=== PATIENT | female | born 1960 | race Caucasian/White ===

== ENCOUNTER → 2016-10-26 | Outpatient (CLI) | payer BC ==
--- NOTE | 2016-10-27 17:39 | WOMENS IMAGING REPORT ---
EXAM DESCRIPTION: 3D SCREENING MAMMO BILAT COMPLETED DATE/TIME: 10/26/2016 12:17 pm REASON FOR STUDY: Z12.31 ROUTINE SCREENING MAMMO Z12.31 ENCNTR SCREEN MAMMOGRAM FOR MALIGNANT NEOPL ASM OF SHEELA COMPARISON: Multiple since 2008 TECHNIQUE: Standard craniocaudal and mediolateral oblique views of each breast recorded using digita l acquisition and breast tomosynthesis. LIMITATIONS: None. FINDINGS: Findings present which are benign by mammographic criteria. No suspicious masses, calcifi cations or architectural distortion. Read with the assistance of CAD. .[facility] - R2 Cenova Version 1.3 .[facility] Imaging - R2 Cenova Version 1.3 .[facility] - R2 Cenova Version 2.4 .[facility] [place] R2 Cenova Version 2.4 .[facility] - R2 Product Support Representative Version 9.2 Benign mammographic findings may include one or more of the following: Smooth masses, popcorn/rim/co arse calcifications, asymmetries, post-procedure changes, and lesions with long-standing stability. BREAST DENSITY: b. There are scattered areas of fibroglandular density. BIRAD: 2 BENIGN FINDING(S) RECOMMENDATION: RECOMMENDATION: ROUTINE SCREENING COMMENT: PATIENT NOTIFIED BY LETTER The [employer] recommends an annual screening mammogram for women aged 40 years or over. Each patient will receive a reminder prior to the anniversary date of her mammogram. The [employer] (ACR) has developed recommendations for screening MRI of the breast s in certain patient populations, to be used in conjunction with mammography. Breast MRI surveillanc e may be appropriate for women with more than 20% lifetime risk of developing breast cancer as deter mined by genetic testing, significant family history of the disease, or history of mantle radiation f or Hodgkins Disease. ACR Practice Guidelines 2008. DBT Technology DBT is a type of tomographic mammography. With conventional mammography, overlapping breast tissue ma y make lesions difficult to detect, even with good compression. DBT uses an x-ray tube that rotates a round the breast, taking images at different angles. These images are then combined to create thin sl ices of the breast that the radiologist can view as a 3D reconstruction. The [employer] unit can perform full-field digital mammograms (2D imaging); or DBT (3D imaging); or both, in a combination mode that quickly performs both the mammogram and the tomosynthesis scan while the breast is still compressed. PQRS 6045F: Fluoroscopic imaging is not utilized for breast tomosynthesis. TECHNICAL DOCUMENTATION: FINDING NUMBER: (1) ASSESSMENT: (1) JOB ID: [id number] [employer]- All Rights Reserved
== END ==
LOC: WI 11:28
PROVIDERS: ATTEND Internal Medicine
DX: Z12.31 Encounter for screening mammogram for malignant neoplasm of breast (principal)
CPT/HCPCS: 77063; G0202; 77067

== ENCOUNTER → 2016-12-23 | Outpatient (CLI) | payer BC ==
[~2016-12-23] MED LIST: DIAZEPAM 5 MG TABLET PO ONE
== END ==
LOC: RAD 15:35
PROVIDERS: ATTEND Surgery
DX: R22.0 Localized swelling, mass and lump, head (principal); R51 Headache
CPT/HCPCS: 82565; 70553; 70486; A9577

== ENCOUNTER 2017-06-28 14:33 | Emergency (ER) | payer BC ==
[2017-06-28] MEDS ORDERED: PREDNISONE 20 MG TABLET PO ONE (14:47)
[2017-06-28] MEDS ORDERED: FAMOTIDINE 20 MG TABLET PO ONE (14:47)
--- NOTE | 2017-06-28 14:49 | ER Document Report ---
ED General - General Stated Complaint: RASH Time Seen by Provider: 06/28/17 14:47 Mode of Arrival: Ambulatory Information source: Patient Notes: 56-year-old female presents with complaints of allergic reaction rash on chest abdomen back. Patient notes symptoms have been ongoing for a few days, notes she just had a craniotomy and was placed on Dilantin which is the newest medication. She spoke with her physician who stopped her Dilantin and increased her Keppra. Patient denies any oral involvement denies any difficulty breathing TRAVEL OUTSIDE OF THE [place] IN LAST 30 DAYS: No - HPI Onset: Other Onset/Duration: Persistent, Waxing and waning Quality of pain: No pain, Other - itching Severity: Moderate Pain Level: Denies Associated symptoms: Other - rash Exacerbated by: Denies Relieved by: Other - benadryl 2 hours prior to arrival Similar symptoms previously: No Recently seen / treated by doctor: Yes - Related Data Allergies/Adverse Reactions: No Known Allergies Allergy (Verified 06/28/17 14:50) Past Medical History - Social History Smoking Status: Never Smoker Cigarette use (# per day): No Chew tobacco use (# tins/day): No Smoking Education Provided: No Family History: Reviewed & Not Pertinent - Past Medical History Cardiac Medical History: Reports: Hx Hypertension Denies: Hx Atrial Fibrillation, Hx Congestive Heart Failure, Hx Coronary Artery Disease, Hx Heart Attack, Hx Hypercholesterolemia, Hx Peripheral Vascular Disease, Hx Heart Murmur Pulmonary Medical History: Denies: Hx Asthma, Hx Bronchitis, Hx COPD, Hx Pneumonia, Hx Tuberculosis Neurological Medical History: Denies: Hx Cerebrovascular Accident, Hx Seizures Musculoskeltal Medical History: Denies Hx Arthritis, Denies Hx Fibromyalgia, Denies Hx Muscular Dystrophy Traumatic Medical History: Denies: Hx Fractures Past Surgical History: Reports: Hx Cholecystectomy, Hx Tubal Ligation. Denies: Hx Appendectomy, Hx Bowel Surgery, Hx Section, Hx Coronary Artery Bypass Graft, Hx Gastric Bypass Surgery, Hx Herniorrhaphy, Hx Hysterectomy, Hx Mastectomy, Hx Pacemaker, Hx Tonsillectomy - Immunizations Hx Diphtheria, Pertussis, Tetanus Vaccination: Yes Review of Systems - Review of Systems Notes: REVIEW OF SYSTEMS: CONSTITUTIONAL : Denies fever, chills, or sweats. Denies recent illness. EENT: Denies eye, ear, throat, or mouth pain or symptoms. Denies nasal or sinus congestion or discharge. Denies throat, tongue, or mouth swelling or difficulty swallowing. CARDIOVASCULAR: Denies chest pain. Denies palpitations or racing or irregular heart beat. Denies ankle edema. RESPIRATORY: Denies cough, cold, or chest congestion. Denies shortness of breath, difficulty breathing, or wheezing. GASTROINTESTINAL: Denies abdominal pain or distention. Denies nausea, vomiting , or diarrhea. Denies blood in vomitus, stools, or per rectum. Denies black, tarry stools. Denies constipation. GENITOURINARY: Denies difficulty urinating, painful urination, burning, frequency, blood in urine, or discharge. FEMALE GENITOURINARY: Denies vaginal bleeding, heavy or abnormal periods, irregular periods. Denies vaginal discharge or odor. MUSCULOSKELETAL: Denies back or neck pain or stiffness. Denies joint pain or swelling. SKIN: admits to rash HEMATOLOGIC : Denies easy bruising or bleeding. LYMPHATIC: Denies swollen, enlarged glands. NEUROLOGICAL: recent surgery PSYCHIATRIC: Denies anxiety or stress. Denies depression, suicidal ideation, or homicidal ideation. ALL OTHER SYSTEMS REVIEWED AND NEGATIVE. PHYSICAL EXAMINATION: GENERAL: Well-appearing, well-nourished and in no acute distress. EYES: Pupils equal round extraocular movements intact, conjunctiva are normal. ENT: Nares patent NECK: Normal range of motion LUNGS: No respiratory distress Musculoskeletal: Normal range of motion NEUROLOGICAL: Normal speech, normal gait. PSYCH: Normal mood, normal affect. SKIN: generalized urticarial rash noted on chest abdomen and back. no secondary sign of infection Dictation was performed using [employer] voice recognition software Physical Exam - Vital signs Vitals: Temp Pulse Resp BP Pulse Ox 98.2 F 81 14 120/64 99 06/28/17 14:35 06/28/17 14:35 06/28/17 14:35 06/28/17 14:35 06/28/17 14:35 Course - Re-evaluation Re-evalutation: 06/28/17 15:19 Patient is having obvious allergic reaction, it is probably secondary to the Dilantin since this is the newest medication. I will treat her for her symptoms have been given EpiPen as well as very strict precautions After performing a Medical Screening Examination, I estimate there is LOW risk for AIRWAY COMPROMISE, ANAPHYLAXIS, CELLULITIS, EPIGLOTTIS, or NECROTIZING FASCIITIS, thus I consider the discharge disposition reasonable. Also, there is no evidence or peritonitis, sepsis, or toxicity. I have reevaluated this patient multiple times and no significant life threatening changes are noted. The patient and I have discussed the diagnosis and risks, and we agree with discharging home with close follow-up with the understanding that symptoms and presentations can change. We also discussed returning to the Emergency Department immediately if new or worsening symptoms occur. We have discussed the symptoms which are most concerning (e.g., difficulty breathing or swallowing , fever, changing or worsening pain) that necessitate immediate return. - Vital Signs Vital signs: Temp Pulse Resp BP Pulse Ox 98.2 F 75 14 120/64 99 06/28/17 14:36 06/28/17 14:36 06/28/17 14:36 06/28/17 14:36 06/28/17 14:36 Discharge - Discharge Clinical Impression: Allergic reaction caused by a drug Qualifiers: Encounter type: initial encounter Qualified Code(s): T78.40XA - Allergy, unspecified, initial encounter Condition: Stable Disposition: HOME, SELF-CARE Instructions: Acute Allergic Reaction ([facility]) Additional Instructions: Follow up with your physician tomorrow for further care or return to the ED IMMEDIATELY if symptoms worsen or new concerns occur. If you cannot afford to follow up with your primary care physician a list of low cost clinics have been provided at the end of your discharge papers as well. Prescriptions: Diphenhydramine HCl [Benadryl 50 mg Capsule] 1 cap PO Q6 PRN #20 capsule PRN Reason: Epinephrine [Epipen] 0.3 mg IM ASDIR PRN #1 auto.injct PRN Reason: Famotidine [Pepcid 20 mg Tablet] 20 mg PO DAILY #5 tablet Prednisone [Deltasone 20 mg Tablet] 3 tab PO DAILY 5 Days tablet
[2017-06-28 14:53] VITALS: BP 120/64
== END 2017-06-28 15:05 | disposition home or self-care (01) ==
LOC: ER 14:33
DX: R21 Rash and other nonspecific skin eruption (principal); T78.40XA Allergy, unspecified, initial encounter; X58.XXXA Exposure to other specified factors, initial encounter; I10 Essential (primary) hypertension; Z90.49 Acquired absence of other specified parts of digestive tract; Z98.51 Tubal ligation status
CPT/HCPCS: 99282; J7512

== ENCOUNTER → 2017-10-27 | Outpatient (CLI) | payer BC ==
--- NOTE | 2017-10-27 15:44 | WOMENS IMAGING REPORT ---
EXAM DESCRIPTION: BONE DENSITY HIP/SPINE COMPLETED DATE/TIME: 10/27/2017 1:44 pm REASON FOR STUDY: SCREENING MAMMO/OSTEOPOROSIS Z12.31 ENCNTR SCREEN MAMMOGRAM FOR MALIGNANT NEOPLAS M OF SHEELA M81.0 AGE-RELATED OSTEOPOROSIS W/O CURRENT PATHOLOGICAL FRAC COMPARISON: October 2011 TECHNIQUE: Dual-Energy X-ray Absorptiometry (DEXA) of the AP Spine and Hip. LIMITATIONS: None. FINDINGS: LUMBAR SPINE: The bone mineral density (BMD) measured from L1-L4 in the AP projection correlates with a T-score of -0.2, which is normal as defined by the World Health Organization. -2.6% decrease as compared to the previous study HIP: The bone mineral density (BMD) measured in the left hip correlates with a T-score of -1.7, which is o steopenia as defined by the World Health Organization. -7.1% decrease as compared to the previous st udy IMPRESSION: 1. LUMBAR SPINE: Normal 2. HIP: Osteopenia COMMENT: The World Health Organization defines low BMD as follows: T-score: Normal: Greater than -1.0 Osteopenia: Between -1.0 and -2.5 Osteoporosis: Less than -2.5 without fractures Established osteoporosis: Less than -2.5 with fractures In general, you may wish to consider: Diagnosis Treatment Follow-up DEXA Normal BMD Prevention 2-3 years Osteopenia Prevention/Therapy 1-2 years Osteoporosis Therapy Yearly TECHNICAL DOCUMENTATION: JOB ID: [id number] [employer]- All Rights Reserved
--- NOTE | 2017-10-27 18:08 | WOMENS IMAGING REPORT ---
EXAM DESCRIPTION: 3D SCREENING MAMMO BILAT COMPLETED DATE/TIME: 10/27/2017 1:43 pm REASON FOR STUDY: SCREENING MAMMO/OSTEOPOROSIS Z12.31 ENCNTR SCREEN MAMMOGRAM FOR MALIGNANT NEOPLAS M OF SHEELA M81.0 AGE-RELATED OSTEOPOROSIS W/O CURRENT PATHOLOGICAL FRAC COMPARISON: MULTIPLE SINCE 2008 TECHNIQUE: Standard craniocaudal and mediolateral oblique views of each breast recorded using digita l acquisition and breast tomosynthesis. LIMITATIONS: None. FINDINGS: Findings present which are benign by mammographic criteria. No suspicious masses, calcifi cations or architectural distortion. Pertinent benign findings: Benign stable calcifications bilaterally Read with the assistance of CAD. .[facility] - R2 Cenova Version 1.3 .[facility] Imaging - R2 Cenova Version 1.3 .[facility] Imaging - R2 Cenova Version 2.4 .[facility] [place] R2 Cenova Version 2.4 .[facility] - R2 Manager Respiratory Version 9.2 Benign mammographic findings may include one or more of the following: Smooth masses, popcorn/rim/co arse calcifications, asymmetries, post-procedure changes, and lesions with long-standing stability. IMPRESSION: BENIGN MAMMOGRAPHIC FINDINGS. BIRADS 2 BREAST DENSITY: b. There are scattered areas of fibroglandular density. BIRAD: 2 BENIGN FINDING(S) RECOMMENDATION: RECOMMENDATION: ROUTINE SCREENING Please continue yearly bilateral screening tomosynthesis in October 2018 COMMENT: The patient has been notified of the results by letter per [place] requirements. Additional no tification policies are in place for contacting patient with suspicious or incomplete findings. Quality ID #[id number]: The [place] [employer] recommends an annual screening mammogram for women aged 40 years or over. This facility utilizes a reminder system to ensure that all patients receive reminder letters, and/or direct phone calls for appointments. This includes reminders for routine scr eening mammograms, diagnostic mammograms, or other Breast Imaging Interventions when appropriate. Th is patient will be placed in the appropriate reminder system. The [place] [employer] (ACR) has developed recommendations for screening MRI of the breast s in certain patient populations, to be used in conjunction with mammography. Breast MRI surveillanc e may be appropriate for women with more than 20% lifetime risk of developing breast cancer as deter mined by genetic testing, significant family history of the disease, or history of mantle radiation f or Hodgkins Disease. ACR Practice Guidelines 2008. DBT Technology DBT is a type of tomographic mammography. With conventional mammography, overlapping breast tissue ma y make lesions difficult to detect, even with good compression. DBT uses an x-ray tube that rotates a round the breast, taking images at different angles. These images are then combined to create thin sl ices of the breast that the radiologist can view as a 3D reconstruction. The [employer] unit can perform full-field digital mammograms (2D imaging); or DBT (3D imaging); or both, in a combination mode that quickly performs both the mammogram and the tomosynthesis scan while the breast is still compressed. PQRS 6045F: Fluoroscopic imaging is not utilized for breast tomosynthesis. TECHNICAL DOCUMENTATION: FINDING NUMBER: (1) ASSESSMENT: (1) JOB ID: [id number] [employer]- All Rights Reserved
== END ==
LOC: WI 13:14
PROVIDERS: ATTEND Internal Medicine
DX: Z12.31 Encounter for screening mammogram for malignant neoplasm of breast (principal); M81.0 Age-related osteoporosis without current pathological fracture
CPT/HCPCS: 77063; 77067; 77080

== ENCOUNTER → 2018-04-27 | Outpatient (CLI) | payer BC ==
--- NOTE | 2018-04-27 16:35 | RADIOLOGY REPORT (SQ) ---
EXAM DESCRIPTION: KNEE RIGHT 2 VIEWS COMPLETED DATE/TIME: 04/27/2018 4:20 pm REASON FOR STUDY: PAIN IN RT KNEE M25.561 PAIN IN RIGHT KNEE COMPARISON: None. NUMBER OF VIEWS: Two views TECHNIQUE: AP and lateral radiographic images acquired of the right knee. LIMITATIONS: None. FINDINGS: MINERALIZATION: Normal. BONES: No acute fracture or dislocation. No worrisome bone lesions. JOINT: No effusion. SOFT TISSUES: No soft tissue swelling. No radio-opaque foreign body. OTHER: No other significant finding. IMPRESSION: NEGATIVE STUDY OF THE RIGHT KNEE. NO RADIOGRAPHIC EVIDENCE OF ACUTE INJURY. TECHNICAL DOCUMENTATION: JOB ID: [id number] [employer]- All Rights Reserved Reading location - IP/workstation name: [email or web address]
== END ==
LOC: OD 16:04
PROVIDERS: ATTEND Internal Medicine
DX: M25.561 Pain in right knee (principal)

== ENCOUNTER → 2018-10-31 | Outpatient (CLI) | payer BC ==
--- NOTE | 2018-10-31 13:01 | WOMENS IMAGING REPORT ---
EXAM DESCRIPTION: BILAT SCREENING MAMMO W/CAD COMPLETED DATE/TIME: 10/31/2018 10:56 am REASON FOR STUDY: SCREENING MAMMO Z12.31 ENCNTR SCREEN MAMMOGRAM FOR MALIGNANT NEOPLASM OF SHEELA COMPARISON: [id number] TECHNIQUE: Standard craniocaudal and mediolateral oblique views of each breast recorded using digita l acquisition. LIMITATIONS: None. FINDINGS: No masses, calcifications or architectural distortion. No areas of suspicion. Read with the assistance of CAD. .[facility] - R2 Cenova Version 1.3 .[facility] Imaging - R2 Cenova Version 1.3 .[facility] Imaging - R2 Cenova Version 2.4 .[facility] [place]2 Cenova Version 2.4 .[facility] - R2 Parts Cataloger Version 9.2 IMPRESSION: NORMAL MAMMOGRAM. BIRADS 1. BREAST DENSITY: b. There are scattered areas of fibroglandular density. BIRAD: 1 NEGATIVE RECOMMENDATION: ROUTINE SCREENING COMMENT: The patient has been notified of the results by letter per MQSA requirements. Additional no tification policies are in place for contacting patient with suspicious or incomplete findings. Quality ID #[id number]: The [employer] recommends an annual screening mammogram for women aged 40 years or over. This facility utilizes a reminder system to ensure that all patients receive reminder letters, and/or direct phone calls for appointments. This includes reminders for routine scr eening mammograms, diagnostic mammograms, or other Breast Imaging Interventions when appropriate. Th is patient will be placed in the appropriate reminder system. The [place] [employer] (ACR) has developed recommendations for screening MRI of the breast s in certain patient populations, to be used in conjunction with mammography. Breast MRI surveillanc e may be appropriate for women with more than 20% lifetime risk of developing breast cancer as deter mined by genetic testing, significant family history of the disease, or history of mantle radiation f or Hodgkins Disease. ACR Practice Guidelines 2008. TECHNICAL DOCUMENTATION: FINDING NUMBER: (1) ASSESSMENT: (1) JOB ID: [id number] [email or web address]- All Rights Reserved Reading location - IP/workstation name: [email or web address]
== END ==
LOC: WI 10:24
PROVIDERS: ATTEND Obstetrics & Gynecology Gynecology
DX: Z12.31 Encounter for screening mammogram for malignant neoplasm of breast (principal)
CPT/HCPCS: 77067

== ENCOUNTER → 2018-11-09 | Outpatient (CLI) | payer BC ==
--- NOTE | 2018-11-09 10:00 | WOMENS IMAGING REPORT ---
EXAM DESCRIPTION: U/S ABDOMEN TOTAL COMPLETED DATE/TIME: 11/09/2018 9:41 am REASON FOR STUDY: R10.11 RIGHT UPPER QUADRANT PAIN R10.11 RIGHT UPPER QUADRANT PAIN COMPARISON: None. TECHNIQUE: Dynamic and static grayscale images acquired of the abdomen and recorded on PACS. Additio nal selected color Doppler and spectral images recorded. Note: Study does not meet criteria for complete doppler/duplex scan LIMITATIONS: None. FINDINGS: PANCREAS: Midline pancreas unremarkable LIVER: No masses. Echotexture normal. LIVER VASCULATURE: Normal directional flow of the main portal vein and hepatic veins. GALLBLADDER: Surgically absent ULTRASOUND-DETECTED MCKEON'S SIGN: Not applicable INTRAHEPATIC DUCTS AND COMMON DUCT: CBD and intrahepatic ducts normal caliber, post cholecystectomy. Common bile duct at the harshil hepatis 9 to 10 mm in diameter. No filling defects. INFERIOR VENA CAVA: Normal flow. AORTA: No aneurysm. RIGHT KIDNEY: Normal size. Normal echogenicity. No solid or suspicious masses. No hydronephros is. No calcifications. LEFT KIDNEY: Normal size. Normal echogenicity. No solid or suspicious masses. No hydronephrosi s. No calcifications. SPLEEN: Normal size. No solid masses. PERITONEAL AND PLEURAL SPACES: No ascites or effusions. OTHER: No other significant finding. IMPRESSION: Post cholecystectomy. Otherwise unremarkable study TECHNICAL DOCUMENTATION: JOB ID: [id number] [employer]- All Rights Reserved Reading location - IP/workstation name: [email or web address]
== END ==
LOC: WI 08:56
PROVIDERS: ATTEND Internal Medicine
DX: R10.11 Right upper quadrant pain (principal); Z90.49 Acquired absence of other specified parts of digestive tract
CPT/HCPCS: 76700

== ENCOUNTER 2019-04-17 03:16 | Emergency (ER) | payer BC ==
[2019-04-17] MEDS ORDERED: ASPIRIN 81 MG TABLET, CHEWABLE PO ONE (03:44)
--- NOTE | 2019-04-17 04:09 | ER Document Report ---
ED Cardiac - General Chief Complaint: Chest Pain Stated Complaint: CHEST PAIN Time Seen by Provider: 04/17/19 03:55 Notes: 58-year-old female to emerge department chief complaint of left arm heaviness with left-sided posterior chest pain. States that the pain radiated to the left side of her chest and her arm felt heavy. Patient is hypertensive. Has had a cardiac catheterization done about 7 years ago. Followed by mentally impaired teacher. Also she has had a meningioma and has scheduled to have an MRI done in about 2 days. She was initially thinking that she might be having a stroke but then began to develop the posterior chest pain in the arm heaviness and became more concerned that she could be having a heart attack. Patient is a nurse. TRAVEL OUTSIDE OF THE [place] IN LAST 30 DAYS: No - HPI Patient complains to provider of: Chest pain - Related Data Allergies/Adverse Reactions: phenytoin [From Dilantin] Allergy (Verified 04/17/19 04:10) Past Medical History - General Information source: Patient - Social History Smoking Status: Never Smoker Frequency of alcohol use: None Drug Abuse: None Lives with: Alone Family History: Reviewed & Not Pertinent - Past Medical History Cardiac Medical History: Reports: Hx Hypertension Denies: Hx Atrial Fibrillation, Hx Congestive Heart Failure, Hx Coronary Artery Disease, Hx Heart Attack, Hx Hypercholesterolemia, Hx Peripheral Vascular Disease, Hx Heart Murmur Pulmonary Medical History: Denies: Hx Asthma, Hx Bronchitis, Hx COPD, Hx Pneumonia, Hx Tuberculosis Neurological Medical History: Denies: Hx Cerebrovascular Accident, Hx Seizures Renal/ Medical History: Denies: Hx Peritoneal Dialysis Musculoskeletal Medical History: Denies Hx Arthritis, Denies Hx Fibromyalgia, Denies Hx Muscular Dystrophy Traumatic Medical History: Denies: Hx Fractures Surgical Hx: Other - Craniotomy for an angioma Past Surgical History: Reports: Hx Cholecystectomy, Hx Tubal Ligation. Denies: Hx Appendectomy, Hx Bowel Surgery, Hx Section, Hx Coronary Artery Bypass Graft, Hx Gastric Bypass Surgery, Hx Herniorrhaphy, Hx Hysterectomy, Hx Mastectomy, Hx Pacemaker, Hx Tonsillectomy - Immunizations Hx Diphtheria, Pertussis, Tetanus Vaccination: Yes Review of Systems - Review of Systems Notes: Constitutional: denies: Chills, Diaphoresis, Fever, Malaise, Weakness EENT: denies: Eye discharge, Blurred vision, Tearing, Double vision, Nose congestion, Nose discharge, Throat swelling, Mouth pain Cardiovascular: denies: Palpitations, Heart racing, Orthopnea, Dyspnea,+Chest pain Respiratory: denies: Cough, Hurts to breathe, Wheezing, Shortness of breath Gastrointestinal: denies: Abdominal pain, Diarrhea, Nausea, Vomiting, Black stools, bright red blood in stool Genitourinary: denies: Burning, Dysuria, Discharge, Frequency, Flank pain, Hematuria Musculoskeletal: denies: Joint pain, Joint swelling, Muscle pain, Muscle stiffness, back pain Hematologic/Lymphatic: denies: Anemia, Easy bleeding, Easy bruising, Blood clots Neurological/Psychological: denies: Confusion, Dementia, Depression, Loss of consciousness Skin: No lesions, no masses, no skin breakdown, no abscesses Physical Exam - Vital signs Vitals: Temp Pulse Resp BP Pulse Ox 97.5 F 69 17 166/76 H 98 04/17/19 03:34 04/17/19 03:34 04/17/19 03:34 04/17/19 03:34 04/17/19 03:34 Interpretation: Normal - General General appearance: Appears well, Alert - HEENT Head: Normocephalic, Atraumatic Eyes: Normal Pupils: PERRL - Respiratory Respiratory status: No respiratory distress Chest status: Nontender Breath sounds: Normal Chest palpation: Normal - Cardiovascular Rhythm: Regular Heart sounds: Normal auscultation Murmur: No - Abdominal Inspection: Normal Distension: No distension Bowel sounds: Normal Tenderness: Nontender Organomegaly: No organomegaly - Back Back: Normal, Nontender - Extremities General upper extremity: Normal inspection, Nontender, Normal color, Normal ROM, Normal temperature General lower extremity: Normal inspection, Nontender, Normal color, Normal ROM, Normal temperature, Normal weight bearing. No: Nay's sign - Neurological Neuro grossly intact: Yes Cognition: Normal Orientation: AAOx4 Deven Coma Scale Eye Opening: Spontaneous Deven Coma Scale Verbal: Oriented Deven Coma Scale Motor: Obeys Commands [place] Coma Scale Total: 15 Speech: Normal Motor strength normal: LUE, RUE, LLE, RLE Sensory: Normal - Psychological Associated symptoms: Normal affect, Normal mood - Skin Skin Temperature: Warm Skin Moisture: Dry Skin Color: Normal Course - Re-evaluation Re-evalutation: 04/17/19 06:37 Patient deftly had concerning symptoms. Her initial EKG had ST segment depression in lead III and aVF. Initial cardiac labs are negative. Head CT was done based on her history just to make sure that this was not some sort of brain issue but this appears to be normal. At this time patient needs repeat cardiac labs. Will consult with hospitalist for admission at this time. 04/17/19 06:38 Laboratory 04/17/19 04/17/19 04/17/19 04:03 04:03 04:03 WBC 5.2 RBC 4.32 Hgb 13.8 Hct 39.4 MCV 91 MCH 32.0 MCHC 35.1 RDW 12.3 Plt Count 204 Seg Neutrophils % 57.7 Lymphocytes % 31.7 Monocytes % 8.2 Eosinophils % 1.9 Basophils % 0.5 Absolute Neutrophils 3.0 Absolute Lymphocytes 1.6 Absolute Monocytes 0.4 Absolute Eosinophils 0.1 Absolute Basophils 0.0 Sodium 143.5 Potassium 4.2 Chloride 107 Carbon Dioxide 26 Anion Gap 11 BUN 17 Creatinine 0.63 Est GFR ( Amer) > 60 Est GFR (Non-Af Amer) > 60 Glucose 110 Calcium 9.6 Total Bilirubin 0.4 Direct Bilirubin 0.2 Neonat Total Bilirubin Not Reportable Neonat Direct Bilirubin Not Reportable Neonat Indirect Bili Not Reportable AST 24 ALT 28 Alkaline Phosphatase 105 Creatine Kinase 67 CK-MB (CK-2) 0.86 Troponin I < 0.012 Total Protein 7.2 Albumin 4.6 Chest X-Ray 04/17/19 00:00 IMPRESSION: No evidence of acute intrathoracic disease. There may be trace blunting of the left lateral costophrenic sulcus. Head CT 04/17/19 04:08 IMPRESSION: No acute intracranial findings. - Vital Signs Vital signs: Temp Pulse Resp BP Pulse Ox 97.5 F 69 11 L 156/92 H 98 04/17/19 03:34 04/17/19 03:34 04/17/19 06:01 04/17/19 06:01 04/17/19 06:01 - Laboratory Result Diagrams: 04/17/19 04:03 04/17/19 04:03 - EKG Interpretation by Co EKG shows normal: Sinus rhythm, Mccormick, Intervals, QRS Complexes. abnormal: ST-T Waves - ST depression in lead III and aVF. Discharge - Discharge Clinical Impression: Hypertensive emergency Chest pain Qualifiers: Chest pain type: unspecified Qualified Code(s): R07.9 - Chest pain, unspecified Condition: Good Disposition: ADMITTED INPATIENT Admitting Provider: Solange (Hospitalist) Unit Admitted: Telemetry
[2019-04-17 04:52] LABS: ABSOLUTE EOSINOPHILS # (AUTO) 0.1 10^3/uL (0.0-0.6); ABSOLUTE LYMPHOCYTES (AUTO) 1.6 10^3/uL (0.5-4.7); ABSOLUTE MONOCYTES (AUTO) 0.4 10^3/uL (0.1-1.4); BASOPHILS % (AUTO) 0.5 % (0-2); EOSINOPHILS % (AUTO) 1.9 % (0-6); HEMATOCRIT 39.4 % (36.0-47.0); HEMOGLOBIN 13.8 g/dL (12.0-15.5); LYMPHOCYTES % (AUTO) 31.7 % (13-45); MEAN CORPUSCULAR HGB CONC 35.1 g/dL (32.0-36.0); MEAN CORPUSCULAR VOLUME 91 fl (80-97); MONOCYTES % (AUTO) 8.2 % (3-13); PLATELET COUNT 204 10^3/uL (150-450); RED BLOOD COUNT 4.32 10^6/uL (3.72-5.28); RED CELL DISTRIBUTION WIDTH 12.3 % (11.5-14.0); SEGMENTED NEUTROPHILS % (AUTO) 57.7 % (42-78); TOTAL CELLS COUNTED % (AUTO) 100 %; WHITE BLOOD COUNT 5.2 10^3/uL (4.0-10.5)
--- NOTE | 2019-04-17 05:13 | RADIOLOGY REPORT (SQ) ---
CLINICAL HISTORY: left sided weakness COMPARISON: None. TECHNIQUE: CT HEAD WITHOUT IV CONTRAST on 04/17/2019 4:08 AM CDT This exam was performed according to our departmental dose-optimization program, which includes automated exposure control, adjustment of the mA and/or kV according to patient size and/or use of iterative reconstruction technique. FINDINGS: There is no acute hemorrhage, mass effect or midline shift. There is encephalomalacia in the right temporal lobe. There is no hydrocephalus. There is no significant volume loss for age. There are mild patchy hypodensities within the periventricular and subcortical white matter, consistent with microangiopathic ischemic changes. Right temporal craniotomy was performed. Orbits and globes are unremarkable. There is a mucous retention cyst in the left maxillary sinus. Mastoid air cells are clear. IMPRESSION: No acute intracranial findings.
[2019-04-17 05:16] LABS: ALANINE AMINOTRANSFERASE 28 U/L (9-52); ALBUMIN 4.6 g/dL (3.5-5.0); ALKALINE PHOSPHATASE 105 U/L (38-126); ANION GAP 11 (5-19); ASPARTATE AMINO TRANSFERASE 24 U/L (14-36); BILIRUBIN,DIRECT 0.2 mg/dL (0.0-0.4); BILIRUBIN,TOTAL 0.4 mg/dL (0.2-1.3); BLOOD UREA NITROGEN 17 mg/dL (7-20); CALCIUM 9.6 mg/dL (8.4-10.2); CARBON DIOXIDE 26 mmol/L (22-30); CHLORIDE 107 mmol/L (98-107); CREATINE KINASE 67 U/L (30-135); GLUCOSE 110 mg/dL (75-110); POTASSIUM 4.2 mmol/L (3.6-5.0); SODIUM 143.5 mmol/L (137-145); TOTAL PROTEIN 7.2 g/dL (6.3-8.2)
--- NOTE | 2019-04-17 05:17 | RADIOLOGY REPORT (SQ) ---
EXAM DESCRIPTION: X-ray two view chest. CLINICAL HISTORY: 58 years Female, chest pain COMPARISON: Portable chest performed on 01/01/2012. TECHNIQUE: PA and Lateral views of the chest performed on 04/17/2019 at 5:04 AM FINDINGS: The lungs are well expanded and are clear. There may be trace blunting of the left lateral costophrenic sulcus. There is no evidence of a pneumothorax. The cardiac silhouette is normal in size. The mediastinal contours are normal. No acute osseous abnormalities are identified. No focal soft tissue abnormalities are identified. IMPRESSION: No evidence of acute intrathoracic disease. There may be trace blunting of the left lateral costophrenic sulcus.
[2019-04-17 05:26] LABS: CREATINE KINASE MB 0.86 ng/mL (<4.55)
[2019-04-17 05:28] LABS: TROPONIN I < 0.012 ng/mL
[2019-04-17] MEDS ORDERED: LOSARTAN POTASSIUM 50 MG TABLET PO ONE (05:44)
[2019-04-17] MEDS ORDERED: NITROGLYCERIN 2% OINTMENT 1 GM PACKET TP ONE (05:56)
[2019-04-17 10:05] VITALS: BP 123/67
--- NOTE | 2019-04-17 14:15 | PDOC CONSULTATION ---
Consultation Consult Date: 04/17/19 Attending physician:: JASON RECINOS Provider Consulted: RHIANNON DANGELO Consult reason:: Hypertensive emergency History of Present Illness History of Present Illness: CHLOE MCGHEE is a 58 year old female with past medical history of hypertension, meningioma status post craniotomy and resection of the meningioma presented with chief complaint of left arm heaviness with left-sided posterior chest pain. She denied any fever, chills, palpitation or diaphoresis. She did not have any nausea, vomiting, abdominal pain, diarrhea, urinary complaint is, blurring of vision, lightheadedness or seizure activity. Her blood work is unremarkable and 2 sets of troponin are negative. She is given several dose of antihypertensive and by the time I evaluated the patient her blood pressure 112/70. She did report this her presenting symptoms has subsided and she feels ready to go home. Patient is stable enough to go home and she does not need admission. She has upcoming appointment in 2 weeks with her primary manager logistic. She has also appointment in 1 week with her neurosurgeon. Patient advised to keep up both appointments. Past Medical History Cardiac Medical History: Reports: Hypertension Denies: Atrial Fibrillation, Congestive Heart Failure, Coronary Artery Disease, Myocardial Infarction, Hyperlipidema, Peripheral Vascular Disease, Heart Murmur Pulmonary Medical History: Denies: Asthma, Bronchitis, Chronic Obstructive Pulmonary Disease (COPD), Pneumonia, Tuberculosis Neurological Medical History: Denies: Seizures Musculoskeltal Medical History: Denies: Arthritis, Fibromyalgia Hematology: Denies: Anemia Past Surgical History Past Surgical History: Reports: Cholecystectomy, Tubal Ligation Denies: Amputation, Appendectomy, Section, Coronary Artery Bypass Graft, Gastric Bypass Surgery, Herniorrhaphy, Hysterectomy, Mastectomy, Pacemaker, Tonsillectomy Social History Lives with: Alone Smoking Status: Never Smoker Hx Recreational Drug Use: No Hx Prescription Drug Abuse: No - Advance Directive Resuscitation Status: Full Code Family History Family History: Reviewed & Not Pertinent Parental Family History Reviewed: Yes Children Family History Reviewed: Yes Sibling(s) Family History Reviewed.: Yes Medication/Allergy Home Medications: Alprazolam [Xanax 0.5 mg Tablet] 0.5 mg PO DAILYP PRN 04/17/19 Amlodipine Besylate [Norvasc 5 mg Tablet] 5 mg PO QHS 04/17/19 Levetiracetam [Keppra 500 mg Tablet] 500 mg PO Q12 04/17/19 Losartan Potassium [Cozaar 50 mg Tablet] 50 mg PO DAILY 04/17/19 Allergies/Adverse Reactions: phenytoin [From Dilantin] Allergy (Verified 04/17/19 04:10) Review of Systems Constitutional: ABSENT: chills, fever(s), headache(s), weight gain, weight loss Eyes: ABSENT: visual disturbances Ears: ABSENT: hearing changes Cardiovascular: PRESENT: chest pain Respiratory: ABSENT: cough, hemoptysis Gastrointestinal: ABSENT: abdominal pain, constipation, diarrhea, hematemesis, hematochezia, nausea, vomiting Genitourinary: ABSENT: dysuria, hematuria Musculoskeletal: ABSENT: joint swelling Integumentary: ABSENT: rash, wounds Neurological: ABSENT: abnormal gait, abnormal speech, confusion, dizziness, focal weakness, syncope Psychiatric: ABSENT: anxiety, depression, homidical ideation, suicidal ideation Endocrine: ABSENT: cold intolerance, heat intolerance, polydipsia, polyuria Hematologic/Lymphatic: ABSENT: easy bleeding, easy bruising Physical Exam Vital Signs: Temp Pulse Resp BP Pulse Ox 98.1 F 69 16 123/67 98 04/17/19 10:07 04/17/19 03:34 04/17/19 10:01 04/17/19 10:00 04/17/19 10:01 Intake & Output 04/16/19 04/17/19 04/18/19 06:59 06:59 06:59 Weight 77.5 kg General appearance: PRESENT: no acute distress, well-developed, well-nourished Head exam: PRESENT: atraumatic, normocephalic Eye exam: PRESENT: conjunctiva pink, EOMI, PERRLA. ABSENT: scleral icterus Ear exam: PRESENT: normal external ear exam Mouth exam: PRESENT: moist, tongue midline Neck exam: ABSENT: carotid bruit, JVD, lymphadenopathy, thyromegaly Respiratory exam: PRESENT: clear to auscultation lyn. ABSENT: rales, rhonchi, wheezes Cardiovascular exam: PRESENT: RRR. ABSENT: diastolic murmur, rubs, systolic murmur Pulses: PRESENT: normal dorsalis pedis pul Vascular exam: PRESENT: normal capillary refill GI/Abdominal exam: PRESENT: normal bowel sounds, soft. ABSENT: distended, guarding, mass, organolmegaly, rebound, tenderness Rectal exam: PRESENT: deferred Extremities exam: PRESENT: full ROM. ABSENT: calf tenderness, clubbing, pedal edema Neurological exam: PRESENT: alert, awake, oriented to person, oriented to place, oriented to time, oriented to situation, CN II-XII grossly intact. ABSENT: motor sensory deficit Psychiatric exam: PRESENT: appropriate affect, normal mood. ABSENT: homicidal ideation, suicidal ideation Skin exam: PRESENT: dry, intact, warm. ABSENT: cyanosis, rash Results Laboratory Results: 04/17/19 04:03 04/17/19 04:03 04/17/19 04/17/19 04:03 04:03 WBC 5.2 RBC 4.32 Hgb 13.8 Hct 39.4 MCV 91 MCH 32.0 MCHC 35.1 RDW 12.3 Plt Count 204 Seg Neutrophils % 57.7 Lymphocytes % 31.7 Monocytes % 8.2 Eosinophils % 1.9 Basophils % 0.5 Absolute Neutrophils 3.0 Absolute Lymphocytes 1.6 Absolute Monocytes 0.4 Absolute Eosinophils 0.1 Absolute Basophils 0.0 Sodium 143.5 Potassium 4.2 Chloride 107 Carbon Dioxide 26 Anion Gap 11 BUN 17 Creatinine 0.63 Est GFR ( Amer) > 60 Est GFR (Non-Af Amer) > 60 Glucose 110 Calcium 9.6 Total Bilirubin 0.4 AST 24 ALT 28 Alkaline Phosphatase 105 Total Protein 7.2 Albumin 4.6 04/17/19 04/17/19 04/17/19 04:03 04:03 07:10 Creatine Kinase 67 CK-MB (CK-2) 0.86 Troponin I < 0.012 < 0.012 Impressions: Chest X-Ray 04/17/19 00:00 IMPRESSION: No evidence of acute intrathoracic disease. There may be trace blunting of the left lateral costophrenic sulcus. Head CT 04/17/19 04:08 IMPRESSION: No acute intracranial findings. Assessment and Plan - Diagnosis (1) Chest pain Qualifiers: Chest pain type: other chest pain Qualified Code(s): R07.89 - Other chest pain; R07.8 - Other chest pain Is this a current diagnosis for this admission?: Yes Plan: Most probably noncardiac origin. No EKG changes and negative troponin. Patient is going to see her primary manager logistic in 2 weeks. So she does not need admission to the hospital. (2) Hypertensive emergency Is this a current diagnosis for this admission?: Yes Plan: Patient blood pressure is well controlled when I saw her her blood pressure was 112/70. Letter continue her amlodipine 10 mg p.o. daily and losartan 50 mg p.o. daily and further adjustment is per her primary manager logistic.
--- NOTE | 2019-04-19 07:44 | EKG REPORT ---
SEVERITY:- OTHERWISE NORMAL ECG - SINUS RHYTHM MINIMAL ST DEPRESSION, LATERAL LEADS : Confirmed by: Jerry Eastman MD 19-Apr-2019 07:44:10
--- NOTE | 2019-04-19 07:44 | EKG REPORT ---
SEVERITY:- OTHERWISE NORMAL ECG - SINUS RHYTHM MINIMAL ST DEPRESSION, INFERIOR LEADS : Confirmed by: Jerry Eastman MD 19-Apr-2019 07:44:25
== END 2019-04-17 10:34 | disposition home or self-care (01) ==
LOC: ER 03:16 → EH 06:08 → UNDOADMIN 06:08 → UNDODISIN 10:34 → ER 10:34
DX: R07.89 Other chest pain (principal); I16.0 Hypertensive urgency; Z90.49 Acquired absence of other specified parts of digestive tract; Z98.51 Tubal ligation status; Z86.011 Personal history of benign neoplasm of the brain
CPT/HCPCS: 36415; 70450; 71046; 80053; 82550; 82553; 84484; 85025; 93005; 93010; 99285

== ENCOUNTER → 2019-11-01 | Outpatient (CLI) | payer BC ==
--- NOTE | 2019-11-01 14:04 | WOMENS IMAGING REPORT ---
EXAM DESCRIPTION: 3D SCREENING MAMMO BILAT COMPLETED DATE/TIME: 11/01/2019 1:36 pm REASON FOR STUDY: Z12.31 ENCOUNTER FOR SCREENING MAMMOGRAM FOR MALIGNANT NEOPLASM OF BREAST Z12.31 ENCNTR SCREEN MAMMOGRAM FOR MALIGNANT NEOPLASM OF SHEELA COMPARISON: 2016 to 2018 EXAM PARAMETERS: Views: Standard craniocaudal and mediolateral oblique views of each breast recorded using digital acquisition and breast tomosynthesis. Read with the assistance of CAD. .[facility] - [employer] Version 9.2 LIMITATIONS: None. FINDINGS: No suspicious masses, suspicious calcifications or architectural distortion. No areas of c oncern. IMPRESSION: NEGATIVE MAMMOGRAM. BIRADS 1. BREAST DENSITY: b. There are scattered areas of fibroglandular density. BIRAD: ASSESSMENT: 1 NEGATIVE RECOMMENDATION: ROUTINE SCREENING COMMENT: The patient has been notified of the results by letter per MQSA requirements. Additional no tification policies are in place for contacting patient with suspicious or incomplete findings. Quality ID #[id number]: The [employer] recommends an annual screening mammogram for women aged 40 years or over. This facility utilizes a reminder system to ensure that all patients receive reminder letters, and/or direct phone calls for appointments. This includes reminders for routine scr eening mammograms, diagnostic mammograms, or other Breast Imaging Interventions when appropriate. Th is patient will be placed in the appropriate reminder system. TECHNICAL DOCUMENTATION: FINDING NUMBER: (1) ASSESSMENT: (1) JOB ID: [id number] [employer]- All Rights Reserved Reading location - IP/workstation name: [email or web address]
== END ==
LOC: WI 13:21
PROVIDERS: ATTEND Internal Medicine
DX: Z12.31 Encounter for screening mammogram for malignant neoplasm of breast (principal)
CPT/HCPCS: 77063; 77067

== ENCOUNTER → 2019-11-01 | Outpatient (CLI) | payer BC ==
--- NOTE | 2019-11-02 09:20 | EKG REPORT ---
SEVERITY:- BORDERLINE ECG - SINUS RHYTHM BORDERLINE T ABNORMALITIES, LATERAL LEADS : Confirmed by: Larissa Montez 02-Nov-2019 09:17:44
== END ==
LOC: OD 15:47
PROVIDERS: ATTEND Internal Medicine
DX: I10 Essential (primary) hypertension (principal)
CPT/HCPCS: 93005; 93010

== ENCOUNTER → 2020-10-26 | Outpatient (CLI) | payer BC ==
[~2020-10-26] MED LIST changes: +COVID-19 VACCINE (PFIZER)/PF 30 MCG/0.3 ML VIAL IM ONE; -DIAZEPAM 5 MG TABLET PO ONE; +EPINEPHRINE INJ/PF 1 MG/1 ML AMPULE IM PRN
== END ==
LOC: EMPHEALTH 10:20
PROVIDERS: ATTEND Internal Medicine
DX: Z23 Encounter for immunization (principal)
CPT/HCPCS: 91300